=== PATIENT | female | born 1985 | race American Indian/Alaskan Native ===

== ENCOUNTER 2021-08-29 07:16 | Emergency (ER) | payer OTHER ==
[2021-08-29 08:54] LABS: Bacteria,Urine 1+ /HPF (Negative); Bilirubin,Urine NEG (Negative); Blood,Urine NEG (Negative); Color,Urine Yellow (Yellow); Mucus,Urine 3+ /HPF
[2021-08-29 08:55] LABS: Protein,Urine >500 mg/dL (Negative); WBC,Urine > 182.0 /HPF (0.0-6.0)
[2021-08-29] MEDS ORDERED: LIDOCAINE-MPF (1%) 10 MG/1 ML VIAL 5 ML INFILTRATI ONE (10:29)
[2021-08-29] MEDS ORDERED: PHENAZOPYRIDINE 200 MG TAB PO ONE (10:30)
[2021-08-29] MEDS ORDERED: ACETAMINOPHEN 500 MG TAB PO ONE (10:30)
[2021-08-29] MEDS ORDERED: FLUCONAZOLE 100 MG TAB PO ONE (11:00)
--- NOTE | 2021-08-29 11:00 | Emergency Department Report ---
ED Female HPI - General Chief complaint: Abdominal Pain Stated complaint: UTI Source: patient Mode of arrival: Ambulatory Limitations: No Limitations - History of Present Illness Initial comments: Patient is a 36-year-old -[place] female with no past medical history who presents to the ED with complaint of acute onset persistent dysuria, urinary frequency and urgency, suprapubic pressure and cramps and low back pain for the last 6 days. Patient states that the symptoms have worsened in the last 3 days such that she is unable to sleep because of persistent urinary frequency and urgency. Patient denies fever, chills, vaginal bleeding, vaginal discharge, traumatic injury, dyspareunia, abdominal pain, nausea and vomiting or diarrhea. MD Complaint: dysuria, pelvic pain (Pressure), other (Urinary frequency and urgency and low back pain) -: days(s) (6) Location: suprapubic (Pressure) Radiation: suprapubic, other (Low back pain) Severity: severe Severity scale (0 -10): 7 Quality: cramping, dull, burning Consistency: constant Improves with: none Worsens with: urination Are you Now?: No Last Menstrual Period: 08/07/21 EDC: 05/14/22 Associated Symptoms: denies other symptoms, abdominal pain (Suprapubic pressure and cramps), dysuria, other (Urinary frequency and urgency). denies: vaginal discharge, vaginal bleeding, nausea/vomiting, fever/chills, headaches, loss of appetite, hematuria, rash, seizure, shortness of breath, syncope, weakness - Related Data Sexually active: Yes Previous Rx's Medication Instructions Recorded Last Taken Type Fluconazole [Diflucan TAB] 200 mg PO QDAY #1 tablet 08/29/21 Unknown Rx Ibuprofen [Motrin] 600 mg PO Q8H PRN #30 tablet 08/29/21 Unknown Rx Phenazopyridine [Pyridium] 200 mg PO BID #20 tab 08/29/21 Unknown Rx Sulfamethoxazole/Trimethoprim 1 each PO Q12H #20 tab 08/29/21 Unknown Rx [Bactrim DS TAB] Allergies Allergy/AdvReac Type Severity Reaction Status Date / Time No Known Allergies Allergy Verified 08/29/21 07:53 ED Review of Systems ROS: Stated complaint: UTI Other details as noted in HPI Constitutional: denies: chills, fever Eyes: denies: eye pain, eye discharge, vision change ENT: denies: ear pain, throat pain Respiratory: denies: cough, shortness of breath, wheezing Cardiovascular: denies: chest pain, palpitations Endocrine: no symptoms reported Gastrointestinal: abdominal pain (Suprapubic pressure and cramps). denies: nausea, vomiting, diarrhea Genitourinary: urgency, dysuria, frequency. denies: discharge, abnormal menses, dyspareunia Musculoskeletal: back pain (Low back pain). denies: joint swelling, arthralgia Skin: denies: rash, lesions Neurological: denies: headache, weakness, paresthesias Psychiatric: denies: anxiety, depression Hematological/Lymphatic: denies: easy bleeding, easy bruising ED Past Medical Hx - Medications Home Medications: Home Medications Medication Instructions Recorded Confirmed Last Taken Type Fluconazole [Diflucan TAB] 200 mg PO QDAY #1 tablet 08/29/21 Unknown Rx Ibuprofen [Motrin] 600 mg PO Q8H PRN #30 tablet 08/29/21 Unknown Rx Phenazopyridine [Pyridium] 200 mg PO BID #20 tab 08/29/21 Unknown Rx Sulfamethoxazole/Trimethoprim 1 each PO Q12H #20 tab 08/29/21 Unknown Rx [Bactrim DS TAB] ED Physical Exam - General Limitations: No Limitations General appearance: alert, in no apparent distress - Head Head exam: Present: atraumatic, normocephalic, normal inspection - Eye Eye exam: Present: normal appearance, PERRL, EOMI Pupils: Present: normal accommodation - ENT ENT exam: Present: normal exam, normal orophraynx, mucous membranes moist, TM's normal bilaterally, normal external ear exam - Neck Neck exam: Present: normal inspection, full ROM. Absent: tenderness - Respiratory Respiratory exam: Present: normal lung sounds bilaterally. Absent: respiratory distress, wheezes, rales, rhonchi, stridor, chest wall tenderness, accessory muscle use - Cardiovascular Cardiovascular Exam: Present: regular rate, normal rhythm, normal heart sounds. Absent: systolic murmur, diastolic murmur, rubs, gallop - GI/Abdominal GI/Abdominal exam: Present: soft, normal bowel sounds. Absent: tenderness, guarding, rebound, hyperactive bowel sounds, hypoactive bowel sounds, organomegaly, mass - Bi-manual exam: Present: other (Pelvic exam deferred at this time) - Extremities Exam Extremities exam: Present: normal inspection, full ROM, normal capillary refill. Absent: tenderness, pedal edema, joint swelling, calf tenderness - Back Exam Back exam: Present: normal inspection, full ROM. Absent: tenderness, CVA tenderness (L), muscle spasm, paraspinal tenderness, vertebral tenderness - Neurological Exam Neurological exam: Present: alert, oriented X3, CN II-XII intact, normal gait, reflexes normal - Psychiatric Psychiatric exam: Present: normal affect, normal mood - Skin Skin exam: Present: warm, dry, intact, normal color. Absent: rash ED Course Vital Signs 08/29/21 07:50 Temperature 98.8 F Pulse Rate 69 Respiratory 16 Rate Blood Pressure 116/77 [Right] O2 Sat by Pulse 100 Oximetry ED Medical Decision Making - Medical Decision Making This is a 36-year-old -[place] female with no past medical history who presents to the ED with complaint of acute onset persistent dysuria, urinary frequency and urgency, suprapubic pressure and cramps and low back pain for the last 6 days. Patient states that the symptoms have worsened in the last 3 days such that she is unable to sleep because of persistent urinary frequency and urgency. In the ED, patient is alert and oriented x3 and is not in any distress. Patient is symptomatically stable. Urinalysis showed significant urinary tract infection and vaginal yeast. Patient was treated in the ED for acute urinary tract infection Rocephin 1 g intramuscular injection also given Diflucan 200 mg p.o. x1. Patient was discharged home on antibiotics and advised to follow-up with her primary care physician in 7 to 10 days for reevaluation or return to the ED immediately if symptoms get worse. - Differential Diagnosis UTI; Jamilah vaginitis; STD; bacterial vaginosis; Critical care attestation.: If time is entered above; I have spent that time in minutes in the direct care of this critically ill patient, excluding procedure time. ED Disposition Clinical Impression: Acute urinary tract infection, Dysuria, Jamilah vaginitis Disposition: 01 HOME / SELF CARE / HOMELESS Is pt being admited?: No Does the pt Need Aspirin: No Condition: Stable Instructions: Abdominal Pain (ED), Vaginal Yeast Infection, Adult, Urinary Tract Infection, Adult, [facility] Additional Instructions: Urinalysis showed significant urinary tract infection with plenty of yeast in the urine. Therefore take medication with food, drink plenty of fluids and follow-up with your primary care physician in 7 to 10 days for reevaluation. Return to the ED immediately if symptoms get worse. Prescriptions: Sulfamethoxazole/Trimethoprim [Bactrim DS TAB] 1 each PO Q12H #20 tab Fluconazole [Diflucan TAB] 200 mg PO QDAY #1 tablet Ibuprofen [Motrin] 600 mg PO Q8H PRN #30 tablet PRN Reason: Pain Phenazopyridine [Pyridium] 200 mg PO BID #20 tab Referrals: TIA IVERSON MD [Primary Care Provider] - 3-5 Days Forms: Work/School Release Form(ED) Time of Disposition: 11:03 Print Language: BRAZILIAN
[2021-08-29 11:30] VITALS: BP 124/80
== END 2021-08-29 11:27 | disposition home or self-care (01) ==
LOC: ED 07:16
DX: N39.0 Urinary tract infection, site not specified (principal); R30.0 Dysuria; B37.3 Candidiasis of vulva and vagina
CPT/HCPCS: 81001; 96372; 99282; J0696; J3490